=== PATIENT | female | born 1980 | race Caucasian/White ===

== ENCOUNTER 2016-11-18 05:09 | Emergency (ER) | payer SELFPAY ==
[~2016-11-18] VITALS: Ht 170.2 cm; Wt 84.0 kg
[2016-11-18 05:14] VITALS: BP 125/80; PULSE 107; RESP 15; TEMP 98.5; O2SAT 99
[2016-11-18] MEDS ORDERED: IBUPROFEN 800 MG TAB PO ONE (05:45)
[2016-11-18] MEDS ORDERED: CEPHALEXIN MONOHYDRATE 500 MG CAP PO ONE (05:45)
[2016-11-18] MEDS ORDERED: IBUP800T23 PO (05:51)
[2016-11-18] MEDS ORDERED: CEPH-460 PO (05:51)
--- NOTE | 2016-11-18 05:51 | PD ---
HPI Chief Complaint: Laceration/Skin Injury Time Seen by Provider: 05:10 Travel History International Travel<30 days: No Contact w/Intl Traveler<30days: No Traveled to known affect area: No History of Present Illness HPI Patient is a 36-year-old female presented to emergency department for evaluation of a laceration to her right inner thigh. Patient was running away from a dog, trying to scale a chain-link fence when her pants got caught subsequently cutting her thigh. Patient's tetanus vaccine was updated 1 year ago while she was [place] She reports her pain as a 6 out of 10 and describes it as sore. She denies any other injury, she was not bitten by the dog. PFSH Past Medical History Bipolar Disorder: Yes Anxiety: Yes Depression: Yes Hepatitis: Yes (see) Medical other: Yes (HEP C) Immunizations Current: Yes Tetanus Vaccination: < 5 Years ?: Not : 4 Para: 4 Tubal Ligation: Yes Past Surgical History Cholecystectomy: Yes Social History Alcohol Use: No Tobacco Use: Yes (1PPD) Substance Use: No Allergies-Medications (Allergen,Severity, Reaction): Coded Allergies: No Known Allergies (Unverified , 11/18/16) Reported Meds & Prescriptions Reported Meds & Active Scripts Active No Active Prescriptions or Reported Medications Review of Systems Except as stated in HPI: all other systems reviewed are Neg Skin: Positive Other (laceration to right inner upper thigh) Physical Exam Narrative GENERAL: Well-nourished, well-developed patient. SKIN: Focused skin assessment warm/dry. 4 cm superficial laceration to the inner aspect of the right upper thigh. Base of wound is well visualized, there is no injury to the muscle. HEAD: Normocephalic. EYES: No scleral icterus. No injection or drainage. NECK: Supple, trachea midline. No JVD or lymphadenopathy. CARDIOVASCULAR: Regular rate and rhythm without murmurs, gallops, or rubs. RESPIRATORY: Breath sounds equal bilaterally. No accessory muscle use. GASTROINTESTINAL: Abdomen soft, non-tender, nondistended. MUSCULOSKELETAL: No cyanosis, or edema. BACK: Nontender without obvious deformity. No CVA tenderness. Data Data Last Documented VS Vital Signs Date Time Temp Pulse Resp B/P Pulse Ox O2 Delivery O2 Flow Rate FiO2 11/18/16 05:14 98.5 107 15 125/80 99 Orders Cephalexin (Keflex) (11/18/16 05:45) Ibuprofen (Motrin) (11/18/16 05:45) MDM Medical Decision Making Medical Screen Exam Complete: Yes Emergency Medical Condition: Yes Interpretation(s) Vital Signs Date Time Temp Pulse Resp B/P Pulse Ox O2 Delivery O2 Flow Rate FiO2 11/18/16 05:14 98.5 107 15 125/80 99 Differential Diagnosis Abrasion versus laceration versus contusion versus other Narrative Course Patient's 36 year female presenting for evaluation of a laceration to her right inner thigh after scaling a chain-link fence attempting to run away from a dog. Patient was not bitten by the dog, bleeding is controlled. Please see procedure report for laceration repair. Patient was given dose of Keflex and ibuprofen in the emergency department. Her tetanus vaccine is updated per her report. Patient was given wound care instructions, she was advised to return to emergency department for any new or worsening symptoms. Stitches will need to be removed in 10 days, patient was encouraged to return to the emergency department to have them removed. She verbalized understanding of discharge instructions. Patient is stable for discharge. Procedures Procedure Narrative LACERATION LOCATION: Inner aspect of right upper thigh LENGTH: 4 centimeters NUMBER OF STITCHES/BRYAN: 8 stitches REPAIR: The area of the laceration was prepped with Betadine and sterilely draped. The laceration was infiltrated with 1% lidocaine. The wound was copiously irrigated and explored without evidence of foreign body, tendon injury or neurovascular injury. The wound was closed using 4-0 Prolene and 4-0 Ethilon. This was a 1 layer repair. A sterile dressing was applied. The patient was advised to keep the dressing clean and dry. Patient tolerated the procedure well. Diagnosis Primary Impression: Laceration of thigh without complication Qualified Code: S71.111A - Laceration of thigh without complication, right, initial encounter Referrals: [facility] Primary Care Physician Patient Instructions: Care For Your Stitches (ED), General Instructions, Laceration (ED) Additional Instructions: Stitches will need to be removed in 10 days Keep sutures clean and dry, you may shower, do not go swimming until wound is healed completely Take medications as directed Return to emergency department immediately for any new or worsening symptoms Follow-up with her primary doctor at the [facility] Med/Other Pt SpecificInfo: Prescription(s) given Scripts Ibuprofen 800 Mg [id number] Mg PO Q6HR PRN (PAIN) #40 TAB Ref 0 Prov:Britt Giles 11/18/16 Cephalexin (Keflex)500 Mg [id number] Mg PO Q12H 7 Days Ref 0 Prov:Britt Giles 11/18/16 Disposition: 01 DISCHARGE HOME Condition: Stable Britt Giles Nov 18, 2016 05:51
== END 2016-11-18 06:17 | disposition home or self-care (01) ==
LOC: NEPD 05:09
DX: S71.111A Laceration without foreign body, right thigh, initial encounter (principal); W26.9XXA Contact with unspecified sharp object(s), initial encounter; F17.210 Nicotine dependence, cigarettes, uncomplicated
CPT/HCPCS: 12002

== ENCOUNTER 2017-01-06 16:41 | Emergency (ER) | payer SELFPAY ==
[~2017-01-06] VITALS: Ht 167.6 cm; Wt 100.0 kg
[~2017-01-06 16:41] MED LIST: CEPH-460 PO; IBUP800T23 PO
[2017-01-06 16:47] VITALS: BP 131/77; PULSE 78; RESP 16; TEMP 98.2; O2SAT 100
--- NOTE | 2017-01-06 17:36 | PD ---
Physical Exam Time Seen by Provider: 17:35 Narrative 36 y/o female here for suture removal. Vital signs reviewed. Seen at triage desk. Awaiting bed placement. Data Data Last Documented VS Vital Signs Date Time Temp Pulse Resp B/P Pulse Ox O2 Delivery O2 Flow Rate FiO2 01/06/17 16:47 98.2 78 16 131/77 100 MDM Medical Record Reviewed: Yes Supervised Visit with ADDIE: Nirmal Jefferson Jan 06, 2017 17:36
--- NOTE | 2017-01-06 18:08 | PD ---
HPI Chief Complaint: Wound/Suture/Staple Re-Check Time Seen by Provider: 18:04 Travel History International Travel<30 days: No Contact w/Intl Traveler<30days: No Traveled to known affect area: No History of Present Illness HPI 36-year-old female presents to emergency department requesting suture removal to inner right thigh laceration. She says the stitches have probably been in for about 3 weeks more than they should've been. She denies fever, vomiting. Reports tenderness to the area. Denies drainage from the area. Symptoms are mild in severity. No known allergies. Has no medical complaints. No other modifying factors or associated signs and symptoms. PFSH Past Medical History Bipolar Disorder: Yes Anxiety: Yes Depression: Yes Hepatitis: Yes (see) Immunizations Current: Yes : 4 Para: 4 Tubal Ligation: Yes Past Surgical History Cholecystectomy: Yes Social History Alcohol Use: No Tobacco Use: Yes (1PPD) Substance Use: No Allergies-Medications (Allergen,Severity, Reaction): Coded Allergies: No Known Allergies (Unverified , 11/18/16) Reported Meds & Prescriptions Reported Meds & Active Scripts Active Ibuprofen 800 Mg Tab 800 Mg PO Q6HR PRN Keflex (Cephalexin) 500 Mg Cap 500 Mg PO Q12H 7 Days Review of Systems Except as stated in HPI: all other systems reviewed are Neg Physical Exam Narrative GENERAL: Well-nourished, well-developed female patient, in no acute distress SKIN: Warm and dry. Right inner thigh with wound edges well approximated sutures intact; without erythema, drainage. No signs of infection. HEAD: Atraumatic. Normocephalic. EYES: Pupils equal and round. No scleral icterus. No injection or drainage. ENT: Mucosa pink and moist. Airway patent. NECK: Trachea midline. CARDIOVASCULAR: Regular rate. RESPIRATORY: No accessory muscle use. GASTROINTESTINAL: Rounded. MUSCULOSKELETAL: No obvious deformities. No clubbing. No cyanosis. No edema. NEUROLOGICAL: Awake and alert. Oriented 3. No obvious cranial nerve deficits. Motor grossly within normal limits. Normal speech. PSYCHIATRIC: Appropriate mood and affect; insight and judgment normal. Data Data Last Documented VS Vital Signs Date Time Temp Pulse Resp B/P Pulse Ox O2 Delivery O2 Flow Rate FiO2 01/06/17 16:47 98.2 78 16 131/77 100 MDM Medical Decision Making Medical Screen Exam Complete: Yes Emergency Medical Condition: Yes Medical Record Reviewed: Yes Differential Diagnosis Suture removal, staple removal, medical clearance, wound recheck Narrative Course 36-year-old female presents for suture removal of the laceration of her right inner thigh. She had the sutures placed on November 18. The wound is well approximated with sutures intact and without signs of infection. Sutures removed. Instructed patient to follow up with primary care provider. Patient verbalizes understanding and agreement with treatment plan. Patient is medically cleared and stable for discharge. Discussed reasons to return to the emergency department. Patient agrees with treatment plan. The patients vital signs are stable and the patient is stable for outpatient follow-up and treatment. Patient discharged home, stable and in no acute distress. Diagnosis Primary Impression: Encounter for removal of sutures Referrals: [facility] Primary Care Physician Patient Instructions: General Instructions, Stitches Removal (ED) Additional Instructions: Follow-up with [facility] clinic Follow-up with primary care provider Return to the emergency department immediately with worsening symptoms Med/Other Pt SpecificInfo: No Meds Exist/No RX given Disposition: 01 DISCHARGE HOME Condition: Stable Gracie Root Jan 06, 2017 18:08
== END 2017-01-06 18:27 | disposition home or self-care (01) ==
LOC: NEPK 16:41
DX: S71.111D Laceration without foreign body, right thigh, subsequent encounter (principal); X58.XXXD Exposure to other specified factors, subsequent encounter; Z48.02 Encounter for removal of sutures
CPT/HCPCS: 99281